=== PATIENT | male | born 1945 | race Caucasian/White ===

== ENCOUNTER 2018-11-02 10:58 | Emergency (ER) | payer MEDICARE, OTHER, SELFPAY ==
[2018-11-02 10:58] VITALS: BP 134/67; PULSE 67; RESP 17; TEMP 36.2; O2SAT 95; BMI 23.1
--- NOTE | 2018-11-02 12:22 | ED.VISSUMM ---
- ER Visit Summary Date of Service: 11/02/18 Chief Complaint: Right hand dog bite History of Present Illness: The patient is a 73 M bit by dog about a week ago. He was at someone's house and dogs got in a fight he tried to help a woman break it up and he was bitten by 1 of the dogs. Initially was doing well not start to have swelling and is concerned it might be an infection. He denies any fever, chills or pus. There is no red streaks. He is right-hand dominant. Physical Examination: No acute distress. Vital signs are stable and afebrile. HEENT exam unremarkable. Lungs clear to auscultation. Regular rhythm no murmur. Abdomen soft nontender. Remedies moving all 4. Neurovascular intact. The right hand there are several dog bite puncture wounds over the dorsum of the thumb and hand also on the wrist and forearm. There is no pus. There is no cellulitis. Is not warm to touch. There is mild swelling to his right hand. There is no lymphangitic streaking. There is no axillary lymphadenopathy. He has full flexion-extension all digits of the right hand. He is able to open and close his fist without any difficulty. No signs of septic joints. No acute cellulitis. Neurologically is awake and alert. Test Results: none Emergency Department Course and Treatment: Clinically this does not look infected and it is mildly swollen. Placed on Augmentin twice daily for 10 days. Return if looks worse or follow-up. Ice and elevate. Treatment Plan: Ice and elevate. Augmentin twice daily for 10 days. Follow-up if not improving return if worse. Disposition: Discharge Impression: Right hand swelling status post dog bite This note was generated with FID[employer] dictation software. It may contain incorrect words, spelling, and punctuation that were not noted in review of the chart prior to signing ED Disposition - Plan for ED Patient: Referrals: Nakul Burns MD [Primary Care Provider] -
--- NOTE | 2018-11-02 12:25 | ED.DEP ---
ED Disposition - Plan for ED Patient: Disposition: Home or Assisted Living Instructions: Dog Bite Prescriptions: Amox/Clavulanate Tablet [Augmentin Tablet] 875 mg PO Q12H #20 tab Prescription Printed Referrals: Nakul Burns MD [Primary Care Provider] - 3-5 Days if not improving Additional Instructions: Ice and elevate right hand. Tylenol for pain. Augmentin 1 pill twice a day for the next 10 till gone. Return if the hand looks worse or follow-up with your doctor if not improving.
[2018-11-02] MEDS: Amox/Clavulanate 875 MG Tablet PO (12:34)
--- NOTE | 2018-11-02 12:36 | ED.RN ---
DISCHARGE INSTRUCTIONS GIVEN TO AND REVIEWED WITH PATIENT, PATIENT DENIES QUESTIONS OR CONCERNS AND VOICES UNDERSTANDING OF DISCHARGE INSTRUCTIONS. PT AMBULATES OUT OF ROOM WITHOUT DIFFICULTY.
== END 2018-11-02 12:37 | disposition home or self-care (01) ==
PROVIDERS: Emergency Provider Emergency Medicine; Family Provider Family Medicine; PCP Family Medicine
DX: S61.451A Open bite of right hand, initial encounter (principal); W54.0XXA Bitten by dog, initial encounter; I10 Essential (primary) hypertension; Z87.891 Personal history of nicotine dependence
CPT/HCPCS: 99283

== ENCOUNTER 2018-11-06 14:23 | Emergency (ER) | payer MEDICARE, SELFPAY ==
[2018-11-06 14:26] VITALS: BP 153/79; PULSE 122; RESP 16; TEMP 36.7; O2SAT 97; BMI 21.5
--- NOTE | 2018-11-06 14:49 | CT_ITS ---
STUDY: CT ABDOMEN AND PELVIS WITH CONTRAST REASON FOR EXAM: Male, 73 years old. Bloody diarrhea RADIATION DOSAGE (If Supplied By Facility): CTDIvol = ( 12.94 ) mGy, DLP = ( 570.96 ) mGycm TECHNIQUE: Transaxial images were obtained from the dome of the diaphragm to the symphysis pubis with oral contrast. 100CC ml of Isovue 300 contrast was administered. Sagittal and coronal images were reconstructed. Individualized dose optimization techniques were used for this CT. COMPARISON: None. FINDINGS: The visualized lung bases are clear. The visualized portions of the heart and pericardium are within normal limits. There are no calcified gallstones present. There is a 1 cm indeterminate hypodensity in the right lobe of the liver. The spleen is normal in size. The pancreas is within normal limits. The adrenal glands are within normal limits. There are no renal or ureteral stones. There is no hydronephrosis. There are no focal renal lesions. Normal visualized stomach. There is no bowel obstruction or inflammation. There are colonic diverticula noted without evidence of diverticulitis. The appendix is visualized and appears normal. The aorta is normal in caliber. There are atherosclerotic calcifications noted in the aorta. There is no abdominal or pelvic free air, free fluid, fluid collection or lymphadenopathy. There are no destructive osseous lesions. CT/Abdomen/Pelvis WITH Contrast IMPRESSION: No bowel obstruction or inflammation. Normal appendix. Colonic diverticula without evidence of diverticulitis. 1 cm indeterminate hypodensity in the right lobe of the liver. Electronically Signed: Ben Jenkins, at 17:01 EDT Tel , Service support ,
--- NOTE | 2018-11-06 15:01 | ED.VIS.GEN ---
History of Present Illness Chief Complaint: GI Bleed Informant: Patient Onset: Days Context: Gradual Onset Timing: Continuous Current Severity: Moderate Maximum Severity: Moderate Narrative: The patient presents to the emergency department GI bleeding. Patient underwent endoscopy and colonoscopy by Dr. Bond in August. 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 The patient was seen here 5 days ago. He states that he had a dog bite on his hand. He was started on Augmentin. Since then, his diarrhea has been worsening. He thinks there is been blood in it. He also admits to lightheadedness. The patient is on baby aspirin but denies any other anticoagulant use. He denies any alcohol use currently. He denies any fevers or chills. He has no history of C. difficile. Prior similar symptoms: Yes Recent Illness/Hospitalization: Yes Past Medical History - Allergies and Home Meds Allergies/Adverse Reactions: Allergies venom-honey bee [bee venom (honey bee)] Allergy (Verified 11/02/18 10:58) Pain in joints Primary Care Physician: Nakul Burns MD [Primary Care Provider] - Prior records reviewed: Yes Past Medical History: - Smoking Status: Former smoker Review of Systems General: Reports: Weight loss. Denies: Chills, Fever, Sweats Eyes: Denies: Visual changes - bilaterally, Diplopia ENT: Denies: Rhinorrhea, Sore throat Cardiovascular: Denies: Chest pain, Palpitations Respiratory: Denies: Dyspnea, Cough, Dyspnea on exertion Gastrointestinal: Reports: Diarrhea. Denies: Abdominal pain, Nausea, Vomiting, Melena, Hematochezia Genitourinary: Denies: Dysuria, Hematuria, Frequency Musculoskeletal: Denies: Back pain, Extremity Pain Skin: Denies: Rash, Wounds Neurological: Denies: Headache, Weakness, Numbness Physical Exam Vital Signs/Narrative: Vital Signs Temp Pulse Resp BP Pulse Ox 11/06/18 14:26 98.0 F 122 H 16 153/79 H 97 Inital Vital Signs reviewed: Yes General: Well nourished, Well developed, No Acute Distress Head: Normocephalic, Atraumatic Eyes: Perrl, EOMI ENT: Moist mucous membranes, No rhinorrhea Neck: Supple, Nontender Cardiovascular: Regular rate, Regular rhythm, No murmurs Respiratory: No distress, CTA bilaterally, Chest nontender Abdomen: Soft, Nontender, Nondistended, Normal bowel sounds Back: Nontender, Normal Inspection Extremities: Nontender, No edema Skin: Normal color, No rash Neurological: Alert, Oriented x3, Cranial nerves II-XII grossly intact, Normal Strength, Normal Sensation Psychological: Normal affect, Normal Mood Diagnostic/Tx/Re-eval Clinical Impression(s) from Imaging Studies Abdomen/Pelvis CT 11/06/18 14:49 IMPRESSION: No bowel obstruction or inflammation. Normal appendix. Colonic diverticula without evidence of diverticulitis. 1 cm indeterminate hypodensity in the right lobe of the liver. Electronically Signed: Ben Jenkins, at 17:01 EDT Tel , Service support , Abnormal Lab Results 11/06/18 11/06/18 11/06/18 14:55 14:55 14:55 WBC 10.3 RBC 2.88 L Hgb 9.5 L Hct 28.8 L MCV 100.0 H MCH 33.0 H MCHC 33.0 RDW Std Deviation 47.8 H RDW Coeff of Radha 13.8 Plt Count 582 H MPV 9.1 Immature Gran % (Auto) 1.400 H Neut % (Auto) 67.1 Lymph % (Auto) 19.5 [place] % (Auto) 9.1 Eos % (Auto) 1.9 Baso % (Auto) 1.0 Absolute Neuts (auto) 6.9 Absolute Lymphs (auto) 2.00 Nucleated RBC % 0 Sodium 144 Potassium 4.2 Chloride 114 H Carbon Dioxide 27.0 Anion Gap 3 L BUN 27 H Creatinine 1.46 H Estim Creat Clear Calc 42.21 Est GFR (MDRD) Af Amer 61 Est GFR (MDRD) Non-Af 50 L BUN/Creatinine Ratio 18.5 Glucose 116 H Calcium 10.2 H Total Bilirubin 0.60 AST 9 L ALT 25 Alkaline Phosphatase 138 H Total Protein 7.1 Albumin 2.8 L Globulin 4.3 H Albumin/Globulin Ratio 0.7 L Blood Type AB POSITIVE Antibody Screen NEGATIVE - Medical Decision Making Rectal exam was performed. There was no gross blood. The patient states that he is been having some diarrhea for months, but thought that he had was blood in it. His labs are unremarkable. His creatinine is only mildly elevated. His hemoglobin is stable. I was able to review his labs from [facility]. CT does not show any evidence of colitis. The patient was not able to give a stool sample here. My suspicion for C. difficile is low. I do feel this is likely exacerbated by his oral antibiotics. He is Neri completed 5 days of treatment. I am going to have a stop his antibiotics. The patient does have outpatient GI follow-up. He will be discharged home. Impression 1. Diarrhea ED Disposition - Plan for ED Patient: Disposition: Home or Assisted Living Instructions: DIARRHEA, Unk Cause (Adult) Report Pendg, Diverticulosis Referrals: Nakul Burns MD [Primary Care Provider] - Additional Instructions: Stop the Augmentin. Make sure to keep your GI appointment. Thank you
[2018-11-06] MEDS: 0.9% Normal Saline 1,000 ML 1000 ML IV (15:04)
[2018-11-06] MEDS: Ondansetron 4 MG/2 ML Vial IV (15:05)
[2018-11-06 15:10] LABS: Absolute Neutrophil Count 6.9 X10^3/uL (2.0-7.7); Eosinophils% 1.9 % (0-5); Hematocrit 28.8 % (40-54); Hemoglobin 9.5 g/dL (13.0-16.5); Lymphocyte % 19.5 % (19-41); Mean Platelet Vol. 9.1 fl (6.2-12.0); Monocyte# 0.93 X10^3/uL; Monocyte% 9.1 % (0-10); NRBC Flagged by Analyzer 0 % (0-5); Neutrophil % 67.1 % (47-70); Platelet Count 582 K/mm3 (150-450); RBC Distribution Width CV 13.8 % (11.6-14.6); RBC Distribution Width SD 47.8 fl (35.1-43.9); Red Blood Count 2.88 M/mm3 (4.6-6.2); White Blood Count 10.3 K/mm3 (4.4-11.0)
[2018-11-06 15:28] LABS: ALB/GLOB Ratio 0.7 RATIO (0.9-2.4); AST(SGOT) 9 U/L (15-37); Alanine Aminotransfer ALT/SGPT 25 U/L (16-61); Albumin, Serum 2.8 g/dL (3.2-5.0); Alkaline Phosphatase 138 U/L (45-117); Anion Gap 3 (5-15); BUN 27 mg/dL (7-18); BUN/Creat Ratio 18.5 RATIO (10-20); Calcium,Total 10.2 mg/dL (8.5-10.1); Chloride 114 mmol/L (98-107); Creatinine, Serum 1.46 mg/dL (0.70-1.30); EST Glomerular Filtration Rate 50 mL/min (>60); Est Glom Filt Rate - Afr Amer 61 mL/min (>60); Estimated Creatinine Clearance 42.21 ml/min; Globulin 4.3 g/dL (2.2-4.2); Glucose 116 mg/dL (74-106); Potassium 4.2 mmol/L (3.5-5.1); Protein, Total 7.1 g/dL (6.4-8.2); Sodium Level 144 mmol/L (136-145)
[2018-11-06 17:09] VITALS: BP 138/74; PULSE 84; RESP 16; O2SAT 99
== END 2018-11-06 17:47 | disposition home or self-care (01) ==
LOC: ED 15:20
PROVIDERS: Emergency Provider Emergency Medicine; Family Provider Family Medicine; PCP Family Medicine
DX: R19.7 Diarrhea, unspecified (principal); K57.30 Diverticulosis of large intestine without perforation or abscess without bleeding; Z87.891 Personal history of nicotine dependence; Z79.82 Long term (current) use of aspirin; W54.0XXA Bitten by dog, initial encounter
CPT/HCPCS: 74177; 80053; 85025; 86850; 86900; 86901; 96361; 96374; 99283; J7030; Q9967; A4216; J2405

== ENCOUNTER 2020-08-25 15:48 | Emergency (ER) | payer MEDICARE, SELFPAY ==
[2020-08-25 15:49] VITALS: BP 140/66; PULSE 70; RESP 16; TEMP 35.9; O2SAT 97; BMI 24.7
--- NOTE | 2020-08-25 16:39 | EDS_ITS ---
HPI History of Present Illness Chief Complaint: Wound Detail of Chief Complaint: Fall with laceration to right knee Informant: patient Narrative Narrative: Patient presents to the emergency department with a fall that occurred prior to arrival in the emergency department. Patient states that he was on a patio when he tripped and fell onto his right knee. He did not hit his head. He sustained a laceration over the right knee along the area where his surgical scar was from total knee replacement 7 weeks ago at the [facility]. Patient unsure of his last tetanus shot. Patient was ambulatory afterwards. PFSH PFS Home Medications Therems-M 1 tab PO DAILY 06/22/14 [History Last Taken 11/06/18] lisinopril 20 mg PO DAILY 06/22/14 [History Last Taken 11/06/18] omeprazole 40 mg PO DAILY 06/22/14 [History Last Taken 11/06/18] potassium gluconate 500 mg PO DAILY 06/22/14 [History Last Taken 11/05/18] sildenafil [Viagra] 100 mg PO DAILY PRN 06/22/14 [History Last Taken Unknown] pzkobn-jylayhdh-tcavwls 1 cap PO TIDCM 11/06/18 [History Last Taken 11/06/18] apixaban [Eliquis] 5 mg PO BID 08/25/20 [History Last Taken Unknown] cephalexin 500 mg PO Q6 #40 capsule 08/25/20 [Rx Last Taken Unknown] metoprolol tartrate 50 mg PO DAILY 08/25/20 [History Last Taken Unknown] Allergy/AdvReac Type Severity Reaction Status Date / Time venom-honey bee Allergy Pain in Verified 08/25/20 15:51 [bee venom (honey bee)] joints Social History Smoking Status: Former smoker ROS ROS ED Constitutional Constitutional ED: Reports systems reviewed and no addt'l complaints, except as documented; Denies body ache(s), change in weight or chills Eyes Eyes: Denies acute decrease in peripheral vision, change in vision, double vision or loss of vision ENT ENT ED: Reports none; Denies ear pain, lip swelling, loss taste/smell, neck pain, otalgia or sore throat Cardiovascular Cardiovascular: Reports none; Denies abdominal pain, chest pain with activity, leg edema, lightheadedness, palpitations, rapid heart rate or syncope Respiratory/Chest Respiratory/Chest: Reports none; Denies change in mental status, dry cough, dyspnea, hemoptysis, shortness of breath at rest or shortness of breath with exertion Gastrointestinal Gastrointestinal: Reports none; Denies abdominal pain, change in stool character, diarrhea, hematemesis, hematochezia, melena, rectal bleeding or vomiting Genitourinary Genitourinary ED: Reports none; Denies abdominal discomfort, anuria, dysuria, genital pain or polyuria Musculoskeletal Musculoskeletal: Reports none and other Details: Knee pain after fall with laceration to right knee ; Denies arthralgias, back pain, difficulty walking, extremity pain, muscle weakness or myalgias Integumentary Reports none; Denies abscess or rash Neurologic Neurologic: Reports none; Denies abnormal gait, confusion, focal weakness, frequent falls, headache(s), loss of vision, numbness, paresthesias, radicular pain, vertigo or weakness Psychiatric Psychiatric: Reports systems reviewed and no addt'l complaints, except as documented and none; Denies behavioral changes, confusion, difficulty concentrating, hallucinations, suicidal ideation, tactile hallucinations or visual hallucinations Endocrine Endocrinology: Denies none, cold intolerance, excessive sweating, fatigue or heat intolerance Hematologic/Lymphatic Hematologic/Lymphatic: Reports none; Denies anemia, easy bleeding or easy brui sing Allergic/Immunologic Allergic/Immunologic ED: Denies as per HPI, none, lip swelling, mouth swelling, throat swelling, tongue swelling or hives EXAM Physical Exam Const Vital Signs: 08/25/20 15:49 Temperature 96.7 F L Temperature Source Temporal Pulse Rate 70 Respiratory Rate 16 Blood Pressure 140/66 H Blood Pressure Mean 90 Pulse Ox 97 Oxygen Delivery Method Room Air Positive well nourished and well developed General Appearance ED: well developed and NAD HEENT Reports TM's clear and moist mucous membranes normocephalic and atraumatic; Negative for trauma or tenderness Tympanic Membrane ED: Yes TM's clear Eyes PERRL and EOMs intact bilaterally General Eye ED: Negative for pale conjunctiva or scleral icterus Neck no lymphadenopathy, supple and no JVD General: Negative for tenderness Chest Wall inspection of chest normal and palpation of chest normal Chest: Negative for tenderness Resp normal respiratory effort and clear to auscultation bilaterally Effort and Inspection: Negative for respiratory distress or pain with movement Auscultation: Negative for rhonchi, wheezes or diminished lung sounds Cardio regular rate, regular rhythm, S1 normal heart sound, S2 normal heart sound and no murmurs Peripheral Pulses: pulses 2+ throughout GI normal to inspection, nondistended, normoactive bowel sounds, soft to palpation, non-tender, non-distended and no masses Back/Spine no CVA tenderness and no thoracic nor lumbar tenderness Extremity Extremity Narrative: Patient does have contusion to the lateral aspect of the right knee with some bruising noted. Patient has a 10 cm laceration over the anterior aspect of the knee along the old surgical scar. Neurovascularly intact distally. No significant bleeding at this time. General Extremety ED: Negative for edema General Extremity: Negative for edema Neuro oriented x3, CN's II-XII intact bilaterally, no sensory deficits noted and gait normal Sensorium / Orientation: awake, alert, oriented to person, oriented to place and oriented to time Motor Exam: strength 5/5 throughout and strength abnormal Psych mental status grossly normal Skin no rashes or lesions noted and no wounds MDM MDM MDM Narrative Medical decision making narrative: Patient had x-rays of the right knee which showed no fractures only the laceration. Patient to follow-up with his orthopedic surgeon as he has an appointment next week. He will be started on Keflex. Suture repair was undertaken see repair note. Radiography Diagnostic Testing: Radiology Impression Knee X-Ray 08/25/20 16:45 IMPRESSION: 1. The surgical incision tract is open and measures 1.36 x 0.79 cm within subcutaneous tissues anterior to the midline and medial aspect of the patella. Electronically Signed: Elier Terrell MD at 17:48 EDT , Service support , 4 view x-rays of right knee obtained showed no fractures. Radiology in agreeme nt and did note the laceration over the anterior aspect of the knee. Procedures Lacerations 10 cm knee laceration: Length: 3.94 in Depth: Fascia Shape: Linear Prep: Sterile Conditions and Shure-Clens Laceration repair: Skin sutures Irrigated (ml): 200 Number of Sutures/[place]: 12 Suture Information: Ethilon Comment: 3 Vicryl subcutaneous sutures placed in 12 skin sutures placed Discharge Plan Triage Chief Complaint: Wound ED Provider: Cezar Cosby Dx/Rx/DC Orders Clinical Impression: Contusion of knee Instructions: ED Contusion, Lower Extremity, ED Laceration: All Closures Prescriptions: New cephalexin [cephalexin] 500 MG capsule 500 mg PO Q6 Qty: 40 RF: 0 No Action sildenafil [Viagra] 100 MG tablet 100 mg PO DAILY PRN (Reason: Edema) RF: 0 omeprazole 20 MG capsule 40 mg PO DAILY RF: 0 lisinopril 40 MG tablet 20 mg PO DAILY RF: 0 Therems-M 1 TABLET tablet 1 tab PO DAILY RF: 0 potassium gluconate 500 MG tablet 500 mg PO DAILY RF: 0 bkxdfy-emfamouv-cfduldi 1 CAPSULE capsule 1 cap PO TIDCM RF: 0 metoprolol tartrate 50 mg Tablet 50 mg PO DAILY RF: 0 Eliquis 5 mg Tablet 5 mg PO BID RF: 0 Primary Care Provider: Nakul Burns Referrals: Nakul Burns MD [Primary Care Provider] - Activity Restrictions/Additional Instructions: See your surgeon at the earliest possible time. Suture removal will be in 10 to 14 days.
--- NOTE | 2020-08-25 16:45 | RAD_ITS ---
STUDY: X-RAY - RIGHT KNEE REASON FOR EXAM: Male, 75 years old. FELL ON RIGHT KNEE THAT HE HAD A RECENT KNEE REPLACEMENT SURGERY ON. INCISION SITE IS NOW OPEN POST FALL. TECHNIQUE: 3 view(s) of the knee. COMPARISON: None. FINDINGS: The surgical incision tract is open and measures 1.36 x 0.79 cm within subcutaneous tissues anterior to the midline and medial aspect of the patella. Subcutaneous gas is present in the incision site. No visualized acute fracture is seen. Unremarkable knee prosthetic components. Normal proximal tibiofibular articulation. Mild soft tissue swelling is present around the knee joint and distal thigh. There are atherosclerotic calcifications. RAD/Knee 4 or More Views IMPRESSION: 1. The surgical incision tract is open and measures 1.36 x 0.79 cm within subcutaneous tissues anterior to the midline and medial aspect of the patella. Electronically Signed: Elier Terrell MD at 17:48 EDT , Service support ,
[2020-08-25] MEDS: Diphth,Pertuss(Acell),Tet Vac 0.5 ML Vial IM (17:12)
[2020-08-25] MEDS: Lidocaine 1% (20 ml mdv) 20 ML Vial INFILT (17:12)
[2020-08-25] MEDS: Cephalexin 250 MG Capsule 500 MG PO (18:53)
[2020-08-25 18:54] VITALS: BP 156/73; PULSE 67; RESP 16
== END 2020-08-25 18:56 | disposition home or self-care (01) ==
LOC: ED 16:46
PROVIDERS: Emergency Provider Emergency Medicine; PCP Family Medicine
DX: S81.011A Laceration without foreign body, right knee, initial encounter (principal); W01.0XXA Fall on same level from slipping, tripping and stumbling without subsequent striking against object, initial encounter; Z79.01 Long term (current) use of anticoagulants; Z87.891 Personal history of nicotine dependence; Z79.899 Other long term (current) drug therapy; Z23 Encounter for immunization
CPT/HCPCS: 12004; 73564; 90715; 99285

== ENCOUNTER 2022-09-02 16:27 | Emergency (ER) | payer OTHER, MEDICARE, SELFPAY ==
[2022-09-02 16:29] VITALS: BP 157/72; PULSE 81; RESP 16; TEMP 36.4; O2SAT 97; BMI 24.7
--- NOTE | 2022-09-02 16:52 | EDS_ITS ---
HPI History of Present Illness Chief Complaint: Abn Labs Informant: patient Narrative Narrative: Patient was called by outpatient lab this morning and told that his magnesium was low and he should get to the emergency department. This blood work was done as part of blood work prior to an upcoming routine physicians visit on the sixth of this month. He normally has blood work done ahead of time. At first he states he has no problems he is never had this probl em. But then I find out he is on magnesium 4 times a day. He is on it because he has had low magnesium before. They do not know why its lower he does not know why. He is also on like 20 other pills. He is not sure what these are for. But he is totally asymptomatic. He has no weakness no trouble breathing. No twitching no numbness. No new medicines other than statin was added a few months ago. But he has no muscle pains from that. No change in urine output. He does not know what the magnesium level was that was abnormal today. He does not know where it normally runs. [facility] Medical History HTN (hypertension) Home Medications lisinopril 40 mg tablet 20 mg PO DAILY 06/22/14 [History Last Taken 11/06/18] multivitamin,xc-auwy-sdymxmhs 27 mg-0.4 mg tablet (Therems-M) 1 tab PO DAILY 06/22/14 [History Last Taken 11/06/18] omeprazole 20 mg capsule,delayed release 40 mg PO DAILY 06/22/14 [History Last Taken 11/06/18] potassium gluconate 500 mg (83 mg) tablet 500 mg PO DAILY 06/22/14 [History Last Taken 11/05/18] sildenafil 100 mg tablet (Viagra) 100 mg PO DAILY PRN Edema 06/22/14 [History Last Taken Unknown] tqwvff-yizqimnc-trrzxls 12,000-38,000-60,000 unit capsule,delayed rel 1 cap PO T IDCM 11/06/18 [History Last Taken 11/06/18] apixaban 5 mg tablet (Eliquis) 5 mg PO BID 08/25/20 [History Last Taken Unknown] cephalexin 500 mg capsule 500 mg PO Q6 #40 CAPSULES 08/25/20 [Rx Last Taken Unknown] metoprolol tartrate 50 mg tablet 50 mg PO DAILY 08/25/20 [History Last Taken Unknown] Allergy/AdvReac Type Severity Reaction Status Date / Time venom-honey bee Allergy Pain in Verified 09/02/22 16:29 [bee venom (honey bee)] joints Surgical History H/O hernia repair Total knee replacement status Social History Smoking Status: Former smoker ROS ROS ED ROS Narrative A complete review of systems was performed and is negative except as documented in the history of present illness. Some specific details below. Constitutional: No recent fevers or chills. No rigors. Patient has not generally felt ill. He has no complaints at all EYE: No discharge, visual complaints, or pain. ENT: No difficulty swallowing. CV: No chest pain, pressure or aching. No palpitations or irregular beats. Patient has not been presyncopal or syncopal. Respiratory: No trouble breathing. No cough. No wheezing. No sputum production. No pain with breathing. GI: No abdominal pain. No nausea vomiting diarrhea. No blood in stool. : No frequency dysuria or hematuria. No change in output or color. Musculoskeletal: No recent trauma. No pains. No swelling. Skin: No rash. Nondiaphoretic. Neuro: No weakness or numbness. No difficulty with speaking. No difficulty understanding speech. No visual loss. Endocrine: No polyuria or polydipsia. EXAM Physical Exam Narrative Exam Narrative: CONSTITUTIONAL: Patient is nontoxic in appearance. The patient looks comfortable. Work of breathing looks normal. He walked back in the room without any difficulties. HEENT: No notable trauma. Mucous membranes are still moist. No sinus tenderness. EYES: No conjunctival injection. No proptosis. No pain with range of motion. No pallor. NECK: No meningismus. No JVD. CARDIOVASCULAR: Regular rate. Regular rhythm. No notable murmur. No JVD. RESPIRATORY: No respiratory distress. Breathing is unlabored. No wheezes. No rhonchi. No rales. No pain with a deep breath. GASTROINTESTINAL: Not distended. Bowel sounds are normal. No tenderness. No guarding. No rebound. No palpable mass. No bruit. GENITOURINARY: No tenderness over the bladder. No CVA tenderness. MUSCULOSKELETAL: Atraumatic. No peripheral edema. No cord. No tenderness along the deep venous system. No asymmetry. NEUROLOGICAL: Patient is alert and oriented. No focal deficit noted. SKIN: No noted rashes. No diaphoresis. No vesicles noted. No notable pallor. PSYCHIATRIC: Patient is calm. Mood is appropriate. Const Vital Signs: 09/02/22 16:29 09/02/22 16:43 Temperature 97.6 F L Temperature Source Temporal Pulse Rate 81 Respiratory Rate 16 Respiratory Effort Normal Respiratory Pattern Normal Blood Pressure 157/72 H Blood Pressure Mean 100 Pulse Ox 97 Oxygen Delivery Method Room Air MDM MDM MDM Narrative Medical decision making narrative: Patient CBC shows some mild anemia at 10.0. Platelets are normal white count is normal. Patient's electrolytes showed mild elevation in creatinine at 1.34. This is actually better than about 4 years ago. Patient's phosphorus is normal. Patient's magnesium is quite low at 0.7. However, he is asymptomatic. He has a history of this. We will have him increase his magnesium tablets to 4 times a day. I did give him some oral magnesium and IV here. His magnesium was rechecked and went up to normal at 2.4. He has an appointment already with his doctor in 3 days. They can recheck the magnesium there. Since he is asymptomatic and his magnesium is now good I think we can get him home as he already has close follow-up. Lab Data Attestation: I reviewed the patient's lab results. Labs: Laboratory Results - last 24 hr 09/02/22 09/02/22 16:49 23:13 WBC 8.3 RBC 3.13 L Hgb 10.0 L Hct 30.5 L MCV 97.4 H MCH 31.9 MCHC 32.8 RDW Std Deviation 43.8 RDW Coeff of Radha 12.2 Plt Count 365 MPV 9.5 Immature Gran % (Auto) 0.200 Neut % (Auto) 48.8 Lymph % (Auto) 33.6 [place] % (Auto) 12.1 H Eos % (Auto) 4.1 Baso % (Auto) 1.2 H Absolute Neuts (auto) 4.0 Absolute Lymphs (auto) 2.78 Nucleated RBC % 0 Sodium 138 Potassium 3.9 Chloride 107 Carbon Dioxide 26.0 Anion Gap 5 BUN 30 H Creatinine 1.34 H Estim Creat Clear Calc 44.66 Est GFR (MDRD) Af Amer 66 Est GFR (MDRD) Non-Af 55 L BUN/Creatinine Ratio 22.4 H Glucose 96 Calcium 7.7 L Phosphorus 3.8 Magnesium 0.7 L* 2.4 Discharge Plan Triage Chief Complaint: Abn Labs ED Provider: Jose G Lowery Dx/Rx/DC Orders Clinical Impression: Mild anemia, Hypomagnesemia Instructions: Hypomagnesemia Dc Prescriptions: No Action sildenafil [Viagra] 100 MG tablet 100 mg PO DAILY PRN (Reason: Edema) Patient Comments: supplement omeprazole 20 MG capsule 40 mg PO DAILY Patient Comments: acid reflex lisinopril 40 MG tablet 20 mg PO DAILY Patient Comments: high blood pressure Therems-M 1 TABLET tablet 1 tab PO DAILY Patient Comments: supplement potassium gluconate 500 MG tablet 500 mg PO DAILY Patient Comments: supplement qoefmm-czzdyqcg-lohvtzh 1 CAPSULE capsule 1 cap PO TIDCM Patient Comments: TAKE 1 CAPSULE BY MOUTH THREE TIMES DAILY with meals metoprolol tartrate 50 mg Tablet 50 mg PO DAILY Eliquis 5 mg Tablet 5 mg PO BID cephalexin [cephalexin] 500 MG capsule 500 mg PO Q6 Qty: 40 0RF Primary Care Provider: Nakul Burns Referrals: Nakul Burns MD [Primary Care Provider] - Keep [place] appointment Activity Restrictions/Additional Instructions: Follow-up with your primary physician in 3 days as scheduled. They may recheck your labs to make sure your magnesium is doing well. Increase your magnesium by 2 tablets a day until seen by your family doctor. Disposition Disposition: Home, Self Care
[2022-09-02 16:59] LABS: Absolute Lymphocyte Count 2.78 X10^3/uL (0.83-4.51); Basophil% 1.2 % (0-1); Eosinophil# 0.34 X10^3/uL; Eosinophils% 4.1 % (0-5); Hematocrit 30.5 % (40-54); Lymphocyte # 2.78 X10^3/ul (0.83-4.51); Lymphocyte % 33.6 % (19-41); Mean Corp Hgb Conc 32.8 g/dL (32-36); Mean Corpuscular Hgb 31.9 pg (27.0-32.0); Mean Corpuscular Volume 97.4 fL (80-94); Mean Platelet Vol. 9.5 fl (6.2-12.0); Monocyte% 12.1 % (0-10); NRBC Flagged by Analyzer 0 % (0-5); Neutrophil # 4.04 X10^3/uL (2.7-7.7); Neutrophil % 48.8 % (47-70); Platelet Count 365 K/mm3 (150-450); RBC Distribution Width CV 12.2 % (11.6-14.6); RBC Distribution Width SD 43.8 fl (35.1-43.9); Red Blood Count 3.13 M/mm3 (4.6-6.2); White Blood Count 8.3 K/mm3 (4.4-11.0)
[2022-09-02 17:42] LABS: Anion Gap 5 (5-15); BUN 30 mg/dL (7-18); BUN/Creat Ratio 22.4 RATIO (10-20); Calcium,Total 7.7 mg/dL (8.5-10.1); Chloride 107 mmol/L (98-107); Creatinine, Serum 1.34 mg/dL (0.70-1.30); EST Glomerular Filtration Rate 55 mL/min (>60); Est Glom Filt Rate - Afr Amer 66 mL/min (>60); Estimated Creatinine Clearance 44.66 ml/min; Glucose 96 mg/dL (74-106); Magnesium 0.7 mg/dL (1.6-2.6); Phosphorus 3.8 mg/dL (2.5-4.9); Potassium 3.9 mmol/L (3.5-5.1); Sodium Level 138 mmol/L (136-145)
[2022-09-02] MEDS: Magnesium Sulfate 4gm/100mL 4 GM/100 ML IV.SOLN. IV (18:48)
[2022-09-02] MEDS: Magnesium Chloride 64 MG Delay Rel.Tablet 128 MG PO (19:48)
[2022-09-02 23:29] LABS: Magnesium 2.4 mg/dL (1.6-2.6)
[2022-09-02 23:47] VITALS: TEMP -8.8; TEMP 16
== END 2022-09-02 23:48 | disposition home or self-care (01) ==
PROVIDERS: Emergency Provider Emergency Medicine; PCP Family Medicine; Visit Provider Emergency Medicine
DX: E83.42 Hypomagnesemia (principal); D64.9 Anemia, unspecified; I10 Essential (primary) hypertension; Z87.891 Personal history of nicotine dependence; Z79.899 Other long term (current) drug therapy
CPT/HCPCS: 80048; 83735; 84100; 85025; 96360; 96361; 99284; J7050

== ENCOUNTER 2022-10-08 13:33 | Observation (INO) | payer MEDICARE, SELFPAY ==
[2022-10-08] VITALS (16 sets, daily range): BP systolic 82–130; BP diastolic 48–65; PULSE 29–69; RESP 15–25; TEMP 35.8–36.7; O2SAT 89–109; BMI 25.2; BMI 24.6
--- NOTE | 2022-10-08 14:15 | EKG12_ITS ---
Test Reason : PALPITATIONS Blood Pressure : / mmHG Vent. Rate : 051 BPM Atrial Rate : 051 BPM P-R Int : 138 ms QRS Dur : 092 ms QT Int : 424 ms P-R-T Axes : 000 -14 010 degrees QTc Int : 390 ms Sinus bradycardia with sinus arrhythmia Otherwise normal ECG Confirmed by EASTON HOUSE, JANELLE ([id number]), manager editorial JA VILLEGAS ([id number]) on 10/14/2022 9:02:41 AM Referred By: Confirmed By:LARRY MCCORMACK MD
--- NOTE | 2022-10-08 14:17 | EDS_ITS ---
HPI History of Present Illness Chief Complaint: Shortness of Breath Informant: patient and family Narrative Narrative: Presents here ED brother present, reported sudden short of breath lightheaded 2 hours prior to arrival. No cough. No recent vomiting or diarrhea. Denies bloody stools. He is on Eliquis for history of A-fib. Also on metoprolol. No he was bradycardic on arrival was called to room for evaluation. He denies taking any extra doses of metoprolol. He is [facility] cardiology. He does not have a pacemaker. Also reports was admitted a week ago for significant low magnesium he received IV magnesium infusion states currently taking 6 tabs a day of magnesium. [facility] Medical History HTN (hypertension) Home Medications lisinopril 40 mg tablet 40 mg PO DAILY 06/22/14 [History Last Taken 11/06/18] multivitamin,yh-piwx-smicypcb 27 mg-0.4 mg tablet (Therems-M) 1 tab PO DAILY 06/22/14 [History Last Taken 11/06/18] omeprazole 20 mg capsule,delayed release 40 mg PO DAILY 06/22/14 [History Last Taken 11/06/18] potassium gluconate 500 mg (83 mg) tablet 500 mg PO DAILY 06/22/14 [History Last Taken 11/05/18] sildenafil 100 mg tablet (Viagra) 100 mg PO DAILY PRN Edema 06/22/14 [History Last Taken Unknown] swwxwa-hufmooik-pscsfya 12,000-38,000-60,000 unit capsule,delayed rel 1 cap PO TIDCM 11/06/18 [History Last Taken 11/06/18] apixaban 5 mg tablet (Eliquis) 5 mg PO BID 08/25/20 [History Last Taken Unknown] metoprolol tartrate 50 mg tablet 50 mg PO DAILY 08/25/20 [History Last Taken Unknown] amlodipine 5 mg tablet 5 mg PO DAILY 10/08/22 [History Last Taken Unknown] magnesium oxide 420 mg tablet 840 mg PO TID 10/08/22 [History Last Taken Unknown] pregabalin 50 mg capsule (Lyrica) 50 mg PO BID 10/08/22 [History Last Taken Unknown] rosuvastatin 20 mg tablet (Crestor) 20 mg PO DAILY 10/08/22 [History Last Taken Unknown] tizanidine 4 mg tablet 4 mg PO TID PRN muscle spasticity 10/08/22 [History Last Taken Unknown] Allergy/AdvReac Type Severity Reaction Status Date / Time venom-honey bee Allergy Pain in Verified 10/08/22 13:35 [bee venom (honey bee)] joints Surgical History H/O hernia repair Total knee replacement status Social History Smoking Status: Former smoker ROS ROS ED Constitutional Constitutional ED: Denies chills, fever(s) or sweats Eyes Eyes: Denies change in vision ENT ENT ED: Denies dysphagia or sore throat Cardiovascular Cardiovascular: Reports other Details: Light headed ; Denies chest pain, leg edema, palpitations or racing heartbeat Respiratory/Chest Respiratory/Chest: Reports dyspnea; Denies cough or dyspnea on exertion Gastrointestinal Gastrointestinal: Denies abdominal pain, diarrhea, nausea or vomiting Genitourinary Genitourinary ED: Denies dysuria, hematuria or urinary frequency Musculoskeletal Musculoskeletal: Denies back pain, extremity pain or neck pain Integumentary Denies rash or wounds Neurologic Neurologic: Denies headache(s), paresthesias or weakness EXAM Physical Exam Const Vital Signs: 10/08/22 13:35 10/08/22 14:01 10/08/22 14:07 Temperature 96.5 F L Temperature Source Temporal Pulse Rate 57 L 42 L 39 L Respiratory Rate 18 21 H 18 Respiratory Pattern Blood Pressure 82/65 L 109/49 L Blood Pressure Mean 70 69 Pulse Ox 98 109 100 Oxygen Delivery Method Room Air Room Air 10/08/22 14:16 10/08/22 14:28 10/08/22 14:50 Temperature Temperature Source Pulse Rate 29 L 37 L 46 L Respiratory Rate 21 H 17 Respiratory Pattern Blood Pressure 99/50 L 99/48 L 115/50 L Blood Pressure Mean 66 65 71 Pulse Ox 100 99 99 Oxygen Delivery Method Room Air Room Air 10/08/22 14:34 10/08/22 14:37 10/08/22 14:40 Temperature Temperature Source Pulse Rate 46 L 39 L 36 L Respiratory Rate 25 H 22 H 20 H Respiratory Pattern Blood Pressure 97/53 L 115/50 L Blood Pressure Mean 67 66 Pulse Ox 100 100 100 Oxygen Delivery Method 10/08/22 14:50 10/08/22 15:00 10/08/22 15:11 Temperature Temperature Source Pulse Rate 35 L 45 L 66 Respiratory Rate 18 20 H 17 Respiratory Pattern Blood Pressure 103/52 L Blood Pressure Mean 67 Pulse Ox 96 Oxygen Delivery Method Room Air 10/08/22 15:28 Temperature Temperature Source Pulse Rate 64 Respiratory Rate 18 Respiratory Pattern Normal Blood Pressure Blood Pressure Mean Pulse Ox Oxygen Delivery Method Positive well nourished and well developed General Appearance ED: well developed and NAD HEENT Reports moist mucous membranes normocephalic and atraumatic Eyes PERRL and EOMs intact bilaterally General Eye ED: Yes pale conjunctiva Neck no lymphadenopathy and supple General: Negative for tenderness Chest Wall Chest: Negative for tenderness Resp normal respiratory effort and normal air movement Effort and Inspection: symmetric chest movement; Negative for respiratory distress Cardio regular rhythm and no murmurs Rate: bradycardia Peripheral Pulses: pulses 2+ throughout GI normal to inspection, nondistended, normoactive bowel sounds and non-tender Palpation: Negative for guarding or rebound tenderness present Back/Spine no CVA tenderness and no thoracic nor lumbar tenderness Extremity normal to inspection General Extremety ED: Negative for edema or tenderness General Extremity: Negative for edema Neuro oriented x3 and no sensory deficits noted Sensorium / Orientation: awake and alert Skin no rashes or lesions noted and no wounds MDM MDM MDM Narrative Medical decision making narrative: Interventions / MDM: Differential diagnosis: Diagnosis considered but do not suspect: N/A My EKG interpretation: Sinus rate of 51, no ST or T wave changes, no clear signs of complete heart block. Imaging independently reviewed and interpreted by myself: N/A External documents reviewed: ED visit from 09/02/2022. Magnesium level 0.7 status post ordered IV magnesium recheck was 2.4. At that time was taking 4 tabs of magnesium a day and was told to go up additional 2 tabs a day. Test considered but not ordered:N/A ED course: Patient EKG is sinus rate of 51 however on the monitor he will fluctuate from high 20s to the low 40s sinus rhythm. Blood pressure low 100s high 90s. No respiratory distress. Recent reported magnesium repletion with continued home possibility of magnesium toxicity, he is also appears anemic. He is on metoprolol. Laboratory studies ordered for further evaluation. 1530: Magnesium 2.6. Creatinine 1.96 up from 1.34 with potassium 5.8. Hem oglobin 9.9. Heart rate now high 50s low 60s sinus rhythm blood pressure stable. Clinically stable resting. With DVAID and hyperkalemia. I ordered for hyperkalemia treatment. Aerosol treatments were being given. I did speak with hospice Dr. Medina, states to only give oral Kayexalate at this time with mild hyperkalemia. Will DC IV calcium, insulin and glucose. Patient remained stable. Patient admitted to PCU for further management. Re-evaluation: stable Disposition discussed with patient/family/significant other: Patient and daughter Case discussed with consulting clinician: Hospitalist This note was generated with [employer] dictation software. It may contain incorrect words, spelling, and punctuation that were not noted in checking the note before signing. Lab Data Attestation: I reviewed the patient's lab results. Labs: Laboratory Results - last 24 hr 10/08/22 13:55 WBC 11.1 H RBC 3.17 L Hgb 9.9 L Hct 31.9 L MCV 100.6 H MCH 31.2 MCHC 31.0 L RDW Std Deviation 49.6 H RDW Coeff of Radha 13.4 Plt Count 390 MPV 10.2 Immature Gran % (Auto) 0.500 Neut % (Auto) 69.8 Lymph % (Auto) 18.3 L [place] % (Auto) 7.1 Eos % (Auto) 3.3 Baso % (Auto) 1.0 Absolute Neuts (auto) 7.7 Absolute Lymphs (auto) 2.02 Nucleated RBC % 0 PT 16.1 H INR 1.3 APTT 42.2 H Sodium 135 L Potassium 5.8 H Chloride 106 Carbon Dioxide 25.0 Anion Gap 4 L BUN 48 H Creatinine 1.96 H Estim Creat Clear Calc 30.54 Est GFR (MDRD) Af Amer 43 L Est GFR (MDRD) Non-Af 35 L BUN/Creatinine Ratio 24.5 H Glucose 111 H Calcium 9.7 Magnesium 2.6 Discharge Plan Dx/Rx/DC Orders Clinical Impression: DAVID (acute kidney injury), Symptomatic bradycardia, Acute hyperkalemia Disposition Disposition: [facility]
[2022-10-08] MEDS: 0.9% Normal Saline 1,000 ML 100 ML IV ×2 (14:21→20:03)
[2022-10-08 14:37] LABS: Absolute Lymphocyte Count 2.02 X10^3/uL (0.83-4.51); Absolute Neutrophil Count 7.7 X10^3/uL (2.0-7.7); Basophil# 0.11 X10^3/uL; Eosinophil# 0.36 X10^3/uL; Eosinophils% 3.3 % (0-5); Hematocrit 31.9 % (40-54); Hemoglobin 9.9 g/dL (13.0-16.5); Lymphocyte # 2.02 X10^3/ul (0.83-4.51); Lymphocyte % 18.3 % (19-41); Mean Corpuscular Hgb 31.2 pg (27.0-32.0); Mean Corpuscular Volume 100.6 fL (80-94); Mean Platelet Vol. 10.2 fl (6.2-12.0); Monocyte# 0.78 X10^3/uL; Monocyte% 7.1 % (0-10); NRBC Flagged by Analyzer 0 % (0-5); Neutrophil # 7.74 X10^3/uL (2.7-7.7); Neutrophil % 69.8 % (47-70); Platelet Count 390 K/mm3 (150-450); RBC Distribution Width CV 13.4 % (11.6-14.6); RBC Distribution Width SD 49.6 fl (35.1-43.9); Red Blood Count 3.17 M/mm3 (4.6-6.2); White Blood Count 11.1 K/mm3 (4.4-11.0)
[2022-10-08 15:04] LABS: Anion Gap 4 (5-15); BUN 48 mg/dL (7-18); BUN/Creat Ratio 24.5 RATIO (10-20); Calcium,Total 9.7 mg/dL (8.5-10.1); Chloride 106 mmol/L (98-107); Creatinine, Serum 1.96 mg/dL (0.70-1.30); EST Glomerular Filtration Rate 35 mL/min (>60); Est Glom Filt Rate - Afr Amer 43 mL/min (>60); Estimated Creatinine Clearance 30.54 ml/min; Glucose 111 mg/dL (74-106); Magnesium 2.6 mg/dL (1.6-2.6); Potassium 5.8 mmol/L (3.5-5.1); Sodium Level 135 mmol/L (136-145)
[2022-10-08 15:09] LABS: International Normalized Ratio 1.3; Prothrombin Time (Protime)PT. 16.1 SECONDS (11.7-14.9)
[2022-10-08 15:10] LABS: Partial Thromboplast Time 42.2 Seconds (24.1-36.2)
--- NOTE | 2022-10-08 15:10 | RAD_ITS ---
EXAM: XR CHEST, 1 VIEW CLINICAL INDICATION: sob TECHNIQUE: Frontal view of the chest. COMPARISON: No relevant prior studies available. FINDINGS: LUNGS AND PLEURAL SPACES: Bibasilar linear densities which may represent atelectasis or scarring. No pneumothorax. No effusion. HEART: Heart is top normal size. MEDIASTINUM: No mediastinal or hilar mass. BONES/JOINTS: No acute abnormality. RAD/Chest 1 View (Portable) IMPRESSION: Bibasilar linear scarring/atelectasis. Electronically Signed: Grey Bush MD at 16:37 EDT ,
[2022-10-08] MEDS: Albuterol 2.5 MG/3 ML VIAL.NEB. 10 MG INHALATION (15:25)
--- NOTE | 2022-10-08 15:34 | NURSING ---
DR BEL ALVAREZ
--- NOTE | 2022-10-08 15:47 | NURSING ---
126 OBS TERELETSKY SYMPTOMATIC BRADYCARDIA, DAVID, HYPERKALEMIA
[2022-10-08] MEDS: Sodium Polystyrene Sulfonate 15 GM/60 ML UDC PO (15:59)
--- NOTE | 2022-10-08 16:30 | PCM.HP.STD ---
HPI - General General Date of Admission: 10/08/22 Date of Service: 10/08/22 Chief Complaint: Shortness of breath, generalized fatigue HPI Narrative JENS BARRIENTOS, is a 77 M who presents to the emergency room at [facility] with complaints of generalized fatigue, lightheadedness, and weakness as well as shortness of breath which started several hours ago.. Patient denies any chest pain, he denies any fevers or chills. Evaluation in the emergency room revealed the patient to be bradycardic, telemetry strips showed rates between 20 and 30 bpm, patient was alert during these episodes, patient had an EKG performed which showed a sinus bradycardia with a rate of approximately 55. No ischemic changes were noted. Labs obtained included a CBC which showed a white blood cell count of 11.1, hemoglobin was 9.9, chemistry profile was abnormal for potassium of 5.8, creatinine was 1.96 and BUN was 48. Glucose was 111. I reviewed the patient's chest x-ray and did not see any abnormality, reading from the radiologist was not resulted at the time of my dictation. Patient will be placed in observation status on PCU for acute kidney injury, hyperkalemia, and symptomatic bradycardia- his metoprolol will be held, I have elected to recheck the patient's potassium tomorrow, he does take potassium supplementation at home and he is on an FRANCES inhibitor. I will hold the patient's FRANCES inhibitor for now, I will administer IV fluids due to his elevated creatinine, I suspect the patient's bradycardia is from his metoprolol. Patient does have a remote sensing research scientist from the [facility] which she sees in [facility] [place], he does not remember his remote sensing research scientist name. [facility] Medical History HTN (hypertension) Home Medications lisinopril 40 mg tablet 40 mg PO DAILY BLOOD PRESSURE 06/22/14 [History Last Taken 11/06/18] multivitamin,vr-lups-tokuzvdi 27 mg-0.4 mg tablet (Therems-M) 1 tab PO DAILY SUPPLEMENT 06/22/14 [History Last Taken 11/06/18] omeprazole 20 mg capsule,delayed release 40 mg PO DAILY ACID REFLUX 06/22/14 [History Last Taken 11/06/18] gotlgn-psxdbkez-rkxprui 12,000-38,000-60,000 unit capsule,delayed rel 1 cap PO TIDCM ENZYMES 11/06/18 [History Last Taken 11/06/18] apixaban 5 mg tablet (Eliquis) 5 mg PO BID BLOOD THINNER 08/25/20 [History Last Taken Unknown] metoprolol tartrate 50 mg tablet 50 mg PO DAILY BLOOD PRESSURE 08/25/20 [History Last Taken Unknown] amlodipine 5 mg tablet 5 mg PO DAILY BLOOD PRESSURE 10/08/22 [History Last Taken Unknown] magnesium oxide 420 mg tablet 840 mg PO TID SUPPLEMENT 10/08/22 [History Last Taken Unknown] potassium 99 mg tablet 99 mg PO DAILY 10/08/22 [History Last Taken Unknown] pregabalin 50 mg capsule (Lyrica) 50 mg PO BID PAIN 10/08/22 [History Last Taken Unknown] rosuvastatin 20 mg tablet (Crestor) 20 mg PO DAILY CHOLESTEROL 10/08/22 [History Last Taken Unknown] tizanidine 4 mg tablet 4 mg PO TID PRN MUSCLE SPASMS 10/08/22 [History Last Taken Unknown] Allergy/AdvReac Type Severity Reaction Status Date / Time venom-honey bee Allergy Pain in Verified 10/08/22 13:35 [bee venom (honey bee)] joints Surgical History H/O hernia repair Total knee replacement status Social History Smoking Status: Former smoker ROS Constitutional Constitutional: Reports fatigue and weakness; Denies anorexia, change in weight, chills, fever(s) or night sweats Eyes Eyes: Denies blurry vision, change in vision, discharge from eye(s) or eye pain Cardiovascular Cardiovascular: Reports dyspnea on exertion and lightheadedness; Denies chest pain, claudication, edema or palpitations Respiratory/Chest Respiratory/Chest: Reports shortness of breath with exertion; Denies cough, excessive phlegm production, hemoptysis or shortness of breath at rest Gastrointestinal Gastrointestinal: Denies abdominal pain, constipation, diarrhea, hematemesis, hematochezia, melena, nausea or vomiting Genitourinary Genitourinary: Denies difficulty urinating, dysuria, hematuria, nocturia, urinary frequency, urinary hesitancy, urinary incontinence or urinary urgency Musculoskeletal Musculoskeletal: Denies back pain, joint pain, joint stiffness, joint swelling, myalgias or neck pain Neurologic Neurologic: Denies abnormal gait, abnormal speech, confusion, disequilibrium, dizziness, focal weakness, headache(s), loss of vision, numbness, other visual disturbances, paresthesias, syncope or tingling Psychiatric Psychiatric: Denies anxiety, cognitive impairment, depression, irritability, mood swings or suicidal ideation Endocrine Endocrinology: Denies change in body appearance, cold intolerance, excessive sweating, heat intolerance, polydipsia or polyuria Hematologic/Lymphatic Hematologic/Lymphatic: Denies none, anemia, easy bleeding, easy bruising or lymphadenopathy Allergic/Immunologic Allergic/Immunologic: Denies rhinitis, urticaria, eczemia or asthma Vital Signs Vital Signs Vital Signs: 10/08/22 13:35 10/08/22 14:01 10/08/22 14:07 Temperature 96.5 F L Temperature Source Temporal Pulse Rate 57 L 42 L 39 L Respiratory Rate 18 21 H 18 Respiratory Pattern Blood Pressure 82/65 L 109/49 L Blood Pressure Mean 70 69 Pulse Ox 98 109 100 Oxygen Delivery Method Room Air Room Air 10/08/22 14:16 10/08/22 14:28 10/08/22 14:50 Temperature Temperature Source Pulse Rate 29 L 37 L 46 L Respiratory Rate 21 H 17 Respiratory Pattern Blood Pressure 99/50 L 99/48 L 115/50 L Blood Pressure Mean 66 65 71 Pulse Ox 100 99 99 Oxygen Delivery Method Room Air Room Air 10/08/22 14:34 10/08/22 14:37 10/08/22 14:40 Temperature Temperature Source Pulse Rate 46 L 39 L 36 L Respiratory Rate 25 H 22 H 20 H Respiratory Pattern Blood Pressure 97/53 L 115/50 L Blood Pressure Mean 67 66 Pulse Ox 100 100 100 Oxygen Delivery Method 10/08/22 14:50 10/08/22 15:00 10/08/22 15:11 Temperature Temperature Source Pulse Rate 35 L 45 L 66 Respiratory Rate 18 20 H 17 Respiratory Pattern Blood Pressure 103/52 L Blood Pressure Mean 67 Pulse Ox 96 Oxygen Delivery Method Room Air 10/08/22 15:28 10/08/22 15:35 Temperature 97.1 F L Temperature Source Temporal Pulse Rate 64 67 Respiratory Rate 18 15 Respiratory Pattern Normal Blood Pressure 130/57 H Blood Pressure Mean 81 Pulse Ox 98 Oxygen Delivery Method Room Air Weight Weight: 73.5 kg Body Mass Index (BMI) 24.6 Physical Exam Const alert, oriented x3, no apparent distress, average body habitus and healthy appearing General Appearance: cooperative, well kempt and well developed Orientation / Consciousness: awake, oriented to person, oriented to place and oriented to time HEENT normocephalic, head/scalp atraumatic, hearing grossly normal bilaterally and moist oral mucous membranes Eyes PERRL, EOMs intact bilaterally and conjunctivae normal Neck supple, no JVD, thyroid normal and no carotid bruits General: trachea midline Resp normal respiratory effort, no retractions, no use of accessory muscles and clear to auscultation bilaterally Auscultation: Negative for rales, rhonchi or wheezes Cardio regular rate, regular rhythm, S1 normal heart sound, S2 normal heart sound, no murmurs, no rub and no gallops Cardio Narrative: Patient is bradycardic GI normal to inspection, nondistended, normoactive bowel sounds, soft to palpation, non-tender and non-distended Extremity no clubbing, cyanosis or edema Skin no rashes or lesions noted General Skin Exam: no breakdown Neuro oriented x3, CN's II-XII intact bilaterally, moves all extremities, no focal motor deficits and no sensory deficits noted Sensorium / Orientation: awake, alert, oriented to person, oriented to place and oriented to time Speech: speech normal Psych affect normal Results Lab / Micro Data 10/08/22 13:55 10/08/22 13:55 Labs: Laboratory Results - last 24 hr 10/08/22 13:55: WBC 11.1 H, RBC 3.17 L, Hgb 9.9 L, Hct 31.9 L, MCV 100.6 H, MCH 31.2, MCHC 31.0 L, RDW Std Deviation 49.6 H, RDW Coeff of Radha 13.4, Plt Count 390, MPV 10.2, Immature Gran % (Auto) 0.500, Neut % (Auto) 69.8, Lymph % (Auto) 18.3 L, [place] % (Auto) 7.1, Eos % (Auto) 3.3, Baso % (Auto) 1.0, Absolute Neuts (auto) 7.7, Absolute Lymphs (auto) 2.02, Nucleated RBC % 0, PT 16.1 H, INR 1.3, APTT 42.2 H, Sodium 135 L, Potassium 5.8 H, Chloride 106, Carbon Dioxide 25.0, Anion Gap 4 L, BUN 48 H, Creatinine 1.96 H, Estim Creat Clear Calc 30.54, Est GFR (MDRD) Af Amer 43 L, Est GFR (MDRD) Non-Af 35 L, BUN/Creatinine Ratio 24.5 H, Glucose 111 H, Calcium 9.7, Magnesium 2.6 Assessment & Plan Assessment/Plan (1) Symptomatic bradycardia: PLAN: Plan 1. Symptomatic bradycardia-secondary to beta-francis usage, patient's metoprolol will be held, he will be placed in observation status on PCU and monitored on telemetry. If the patient remains severely bradycardic, he may have to see cardiology in consultation. #2 hyperkalemia-patient takes potassium supplementation at home, he was given an aerosol treatment of Proventil in the ER, I have elected to repeat the patient's BMP in the morning and monitor him on telemetry. I will hold the patient's FRANCES inhibitor for now. #3 paroxysmal atrial fib-again patient appears to be in sinus bradycardia at this time, he is on Eliquis #4 acute kidney injury-patient will receive IV fluids overnight, BMP will be rechecked tomorrow #5 history of hypomagnesemia-patient takes magnesium supplementation at home, this will be continued during his hospitalization #6 hyperlipidemia-patient is on a statin #7 GERD-patient takes a PPI Total clinical time spent by myself addressing the patient's medical issues, reviewing all of his data, and collaborating with patient's care team: 55 minutes Charges/Coding Visit Charges Inpatient E&M: 65732 Init Hosp L2
[2022-10-08] MEDS: Pregabalin 50 MG Capsule PO (21:20)
[2022-10-08] MEDS: APIXABAN 5 MG TABLET PO (21:20)
[2022-10-08] MEDS: Atorvastatin Calcium 40 MG Tablet PO (21:20)
[2022-10-09 04:10] VITALS: BP 148/65; PULSE 63; RESP 14; TEMP 36.8; O2SAT 100
[2022-10-09] MEDS: 0.9% Normal Saline 1,000 ML 100 ML IV (05:21)
[2022-10-09 06:54] LABS: Anion Gap 2 (5-15); BUN 33 mg/dL (7-18); BUN/Creat Ratio 24.8 RATIO (10-20); Calcium,Total 9.6 mg/dL (8.5-10.1); Chloride 109 mmol/L (98-107); Creatinine, Serum 1.33 mg/dL (0.70-1.30); EST Glomerular Filtration Rate 55 mL/min (>60); Est Glom Filt Rate - Afr Amer 67 mL/min (>60); Glucose 95 mg/dL (74-106); Potassium 5.1 mmol/L (3.5-5.1); Sodium Level 137 mmol/L (136-145)
[2022-10-09 07:24] VITALS: O2SAT 97
--- NOTE | 2022-10-09 07:24 | PN.HOSP_ITS ---
Reason for Visit Reason for Visit: Diagnoses Bradycardia, unspecified (10/08/22) Subjective Subjective Patient is a 77-year-old gentleman who presented with sudden onset of shortness of breath and lightheadedness. Patient was found to be bradycardic on admission with heart rate between 20 to 30 bpm. Admitted to a monitored bed for subsequent eval Objective Data Objective Data Vital Signs: Vital Signs Temp Pulse Resp BP Pulse Ox O2 Del Method O2 Flow Rate 98.2 F 63 14 148/65 H 100 Room Air 4 10/09/22 04:10 10/09/22 04:10 10/09/22 04:10 10/09/22 04:10 10/09/22 04:10 10/09/22 04:10 10/08/22 22:20 Oxygen Flow Rate (L/min) 4 Oxygen Delivery Method Room Air Weight: 73.5 kg Body Mass Index (BMI) 24.6 Intake & Output: Intake and Output for Last 24 Hours 10/07/22 10/08/22 10/09/22 23:59 23:59 23:59 Intake Total 1043.33 / 1043.33 930 / 930 Output Total 2 / 2 Balance 1043.33 / 1043.33 928 / 928 Lab / Micro Data 10/08/22 13:55 10/09/22 06:04 Labs: Laboratory Results - last 24 hr 10/08/22 13:55: WBC 11.1 H, RBC 3.17 L, Hgb 9.9 L, Hct 31.9 L, MCV 100.6 H, MCH 31.2, MCHC 31.0 L, RDW Std Deviation 49.6 H, RDW Coeff of Radha 13.4, Plt Count 390, MPV 10.2, Immature Gran % (Auto) 0.500, Neut % (Auto) 69.8, Lymph % (Auto) 18.3 L, [place] % (Auto) 7.1, Eos % (Auto) 3.3, Baso % (Auto) 1.0, Absolute Neuts (auto) 7.7, Absolute Lymphs (auto) 2.02, Nucleated RBC % 0, PT 16.1 H, INR 1.3, APTT 42.2 H, Sodium 135 L, Potassium 5.8 H, Chloride 106, Carbon Dioxide 25.0, Anion Gap 4 L, BUN 48 H, Creatinine 1.96 H, Estim Creat Clear Calc 30.54, Est GFR (MDRD) Af Amer 43 L, Est GFR (MDRD) Non-Af 35 L, BUN/Creatinine Ratio 24.5 H , Glucose 111 H, Calcium 9.7, Magnesium 2.6, Blood Type AB POSITIVE, Antibody Screen NEGATIVE 10/09/22 06:04: Sodium 137, Potassium 5.1, Chloride 109 H, Carbon Dioxide 26.0, Anion Gap 2 L, BUN 33 H, Creatinine 1.33 H, Estim Creat Clear Calc 45.00, Est GFR (MDRD) Af Amer 67, Est GFR (MDRD) Non-Af 55 L, BUN/Creatinine Ratio 24.8 H, Glucose 95, Calcium 9.6 Radiography Diagnostic Testing: Radiology Impression Chest X-Ray 10/08/22 15:10 IMPRESSION: Bibasilar linear scarring/atelectasis. Electronically Signed: Grey Bush MD at 16:37 EDT , Physical Exam Narrative GENERAL: cooperative HEENT: Atraumatic; normocephalic EYES; Anicteric, Normal Conjunctiva NECK; supple, normal thyroid, RESPIRATORY: Diminished to auscultation CARDIOVASCULAR: Regular S1 S2, GI: soft, normoactive bowel sounds, : No Renal angle tenderness; EXTREMITIES: No edema, no clubbing, MUSCULOSKELETAL: no muscle wasting NEURO: Awake; no lateralizing signs. SKIN: No Rash PSYCH; Flat affect Assessment & Plan Assessment/Plan (1) Symptomatic bradycardia: PLAN: Plan Patient is a 77-year-old gentleman who presented with sudden onset of shortness of breath and lightheadedness. Patient was found to be bradycardic on admission with heart rate between 20 to 30 bpm. Admitted to a monitored bed for subsequent eval 1. Symptomatic bradycardia ? Attributed to patient being on beta blockers as well as his hyperkalemia held admitted to monitored bed for continuous telemetry 2. Hyperkalemia ? Attributed to patient potassium supplementation this was held in addition to his FRANCES inhibitor's 3. Paroxysmal A-fib ? Patient presented with significant bradycardia beta-blockers held patient is on systemic anticoagulation with apixaban did continue 4. Anemia - Secondary to chronic disorder monitoring H&H and transfuse if patient becomes symptomatic or hemoglobin falls below 7 5. Essential hypertension ? Patient is on metoprolol amlodipine and lisinopril. Metoprolol and lisinopril held given above reasons 6. GERD ? Patient is on PPI 7. Hypomagnesemia ? Patient is on potassium supplementation 8. Kidney disease stage III ? Kidney function at baseline 9. DVT prophylaxis ? Patient is on apixaban Time spent in the patient's overall evaluation,decision-making process, review of diagnostic data, adjustment of management, discussion with other providers, nursing nursing and ancillary staff involved in patient's care documentation, 35 Minutes Charges/Coding Visit Charges Inpatient E&M: 84442 Subs Hosp L2
[2022-10-09] MEDS: amLODIPine 5 MG Tablet PO (08:18)
[2022-10-09] MEDS: Pantoprazole Sodium 20 MG Tablet 40 MG PO (08:18)
[2022-10-09] MEDS: APIXABAN 5 MG TABLET PO (08:19)
[2022-10-09] MEDS: Pregabalin 50 MG Capsule PO (08:19)
[2022-10-09] MEDS: Magnesium Chloride 64 MG Delay Rel.Tablet 128 MG PO (08:19)
--- NOTE | 2022-10-09 10:02 | DS.PCM_ITS ---
Providers Date of Admission: 10/08/22 Date of Discharge: 10/09/22 Primary Care Physician: Dr. Nakul Burns MD Reason For Visit: SYMPTOMATIC BRADYCARDIA, DAVID, HYPERKALEMIA Diagnosis Discharge Diagnosis (1) Symptomatic bradycardia: Status: Acute Code(s): R00.1 - Bradycardia, unspecified Plan Patient is a 77-year-old gentleman who presented with sudden onset of shortness of breath and lightheadedness. Patient was found to be bradycardic on admission with heart rate between 20 to 30 bpm. Admitted to a monitored bed for subsequent eval 1. Symptomatic bradycardia ? Attributed to patient being on beta blockers as well as his hyperkalemia held admitted to monitored bed for continuous telemetry 2. Hyperkalemia ? Attributed to patient potassium supplementation this was held in addition to his FRANCES inhibitor's 3. Paroxysmal A-fib ? Patient presented with significant bradycardia beta-blockers held patient is on systemic anticoagulation with apixaban did continue 4. Anemia - Secondary to chronic disorder monitoring H&H and transfuse if patient becomes symptomatic or hemoglobin falls below 7 5. Essential hypertension ? Patient is on metoprolol amlodipine and lisinopril. Metoprolol and lisinopril held given above reasons 6. GERD ? Patient is on PPI 7. Hypomagnesemia ? Patient is on potassium supplementation 8. Kidney disease stage III ? Kidney function at baseline 9. DVT prophylaxis ? Patient is on apixaban Time spent in the patient's overall evaluation,decision-making process, review of diagnostic data, adjustment of management, discussion with other providers, nursing nursing and ancillary staff involved in patient's care documentation, 35 Minutes Medications at Discharge Home Medications multivitamin,vn-cnss-cmpeitlw 27 mg-0.4 mg tablet (Therems-M) 1 tab PO DAILY SUPPLEMENT 06/22/14 omeprazole 20 mg capsule,delayed release 40 mg PO DAILY ACID REFLUX 06/22/14 nodflw-vvrxvcbi-fupqkzs 12,000-38,000-60,000 unit capsule,delayed rel 1 cap PO TIDCM ENZYMES 11/06/18 apixaban 5 mg tablet (Eliquis) 5 mg PO BID BLOOD THINNER 08/25/20 magnesium oxide 420 mg tablet 840 mg PO TID SUPPLEMENT 10/08/22 pregabalin 50 mg capsule (Lyrica) 50 mg PO BID PAIN 10/08/22 rosuvastatin 20 mg tablet (Crestor) 20 mg PO DAILY CHOLESTEROL 10/08/22 tizanidine 4 mg tablet 4 mg PO TID PRN MUSCLE SPASMS 10/08/22 amlodipine 5 mg tablet 10 mg (2 x 5 mg) PO DAILY #60 tabs 10/09/22 Hospital Course Summary of Care Provided Minutes Spent on Discharge: 35 Physical Exam Narrative GENERAL: cooperative HEENT: Atraumatic; normocephalic EYES; Anicteric, Normal Conjunctiva NECK; supple, normal thyroid, RESPIRATORY: Diminished to auscultation CARDIOVASCULAR: Regular S1 S2, GI: soft, normoactive bowel sounds, : No Renal angle tenderness; EXTREMITIES: No edema, no clubbing, MUSCULOSKELETAL: no muscle wasting NEURO: Awake; no lateralizing signs. SKIN: No Rash PSYCH; Flat affect Weight / BMI Weight Weight: 73.5 kg Body Mass Index (BMI) 24.6 ABG / Lab / Microbiology Data 10/08/22 13:55 10/09/22 06:04 Laboratory: Laboratory Results - last 24 hr 10/08/22 13:55: WBC 11.1 H, RBC 3.17 L, Hgb 9.9 L, Hct 31.9 L, MCV 100.6 H, MCH 31.2, MCHC 31.0 L, RDW Std Deviation 49.6 H, RDW Coeff of Radha 13.4, Plt Count 390, MPV 10.2, Immature Gran % (Auto) 0.500, Neut % (Auto) 69.8, Lymph % (Auto) 18.3 L, [place] % (Auto) 7.1, Eos % (Auto) 3.3, Baso % (Auto) 1.0, Absolute Neuts (auto) 7.7, Absolute Lymphs (auto) 2.02, Nucleated RBC % 0, PT 16.1 H, INR 1.3, APTT 42.2 H, Sodium 135 L, Potassium 5.8 H, Chloride 106, Carbon Dioxide 25.0, Anion Gap 4 L, BUN 48 H, Creatinine 1.96 H, Estim Creat Clear Calc 30.54, Est GFR (MDRD) Af Amer 43 L, Est GFR (MDRD) Non-Af 35 L, BUN/Creatinine Ratio 24.5 H , Glucose 111 H, Calcium 9.7, Magnesium 2.6, Blood Type AB POSITIVE, Antibody Screen NEGATIVE 10/09/22 06:04: Sodium 137, Potassium 5.1, Chloride 109 H, Carbon Dioxide 26.0, Anion Gap 2 L, BUN 33 H, Creatinine 1.33 H, Estim Creat Clear Calc 45.00, Est G FR (MDRD) Af Amer 67, Est GFR (MDRD) Non-Af 55 L, BUN/Creatinine Ratio 24.8 H, Glucose 95, Calcium 9.6 Radiography Diagnostic Testing: Radiology Impression Chest X-Ray 10/08/22 15:10 IMPRESSION: Bibasilar linear scarring/atelectasis. Electronically Signed: Grey Bush MD at 16:37 EDT , D/C Instructions Discharge Diet: No restrictions Discharge Activity: Return to Normal Activity Call your doctor if you observe: Fever of 101 or Higher, Shortness of breath, Fainting spells and Chest pain Meaningful Use Info Meaningful Use Diagnoses (Choose all that apply): None applicable Discharge Plan Admission Admit Date/Time: 10/08/22 16:53 Attending Provider: Rick Hayes Primary Care Provider: Nakul Burns Consulting Providers: Nakul Medina Discharge Orders/Prescriptions Prescriptions: New amlodipine 5 mg Tablet 10 mg PO DAILY Qty: 60 0RF Continued omeprazole 20 MG capsule 40 mg PO DAILY Therems-M 1 TABLET tablet 1 tab PO DAILY izctyh-wwebzlqi-nusewbp 1 CAPSULE capsule 1 cap PO TIDCM Eliquis 5 mg Tablet 5 mg PO BID rosuvastatin [Crestor] 20 mg tablet 20 mg PO DAILY pregabalin [Lyrica] 50 mg capsule 50 mg PO BID tizanidine 4 mg tablet 4 mg PO TID PRN (Reason: MUSCLE SPASMS) magnesium oxide 420 mg tablet 840 mg PO TID Discontinued lisinopril 40 MG tablet 40 mg PO DAILY metoprolol tartrate 50 mg Tablet 50 mg PO DAILY amlodipine 5 mg tablet 5 mg PO DAILY potassium 99 mg tablet 99 mg PO DAILY Referrals / Follow Up: Nakul Burns MD [Primary Care Provider] - In 1 Week Disposition Disposition (needs filled in before D/C Order can be placed): Home, Self Care Charges/Coding Visit Charges Inpatient E&M: 99019 Disch Hosp >30min
[2022-10-09 10:10] VITALS: BP 135/57; PULSE 59; RESP 18; TEMP 36.4; TEMP 36.8; O2SAT 96
--- NOTE | 2022-10-09 10:37 | PHA.DC.MR.R ---
Pharmacy [place] Med Reconciliation Pharmacy Service has performed discharge medication reconciliation for this patient. The patient's discharge medication list was reviewed for discrepancies and discrepancies were resolved. Medications at Discharge Home Medications multivitamin,zj-ajuy-xgvyoeci 27 mg-0.4 mg tablet (Therems-M) 1 tab PO DAILY SUPPLEMENT 06/22/14 omeprazole 20 mg capsule,delayed release 40 mg PO DAILY ACID REFLUX 06/22/14 thhpjd-acmpgtwc-buwuztz 12,000-38,000-60,000 unit capsule,delayed rel 1 cap PO TIDCM ENZYMES 11/06/18 apixaban 5 mg tablet (Eliquis) 5 mg PO BID BLOOD THINNER 08/25/20 magnesium oxide 420 mg tablet 840 mg PO TID SUPPLEMENT 10/08/22 pregabalin 50 mg capsule (Lyrica) 50 mg PO BID PAIN 10/08/22 rosuvastatin 20 mg tablet (Crestor) 20 mg PO DAILY CHOLESTEROL 10/08/22 tizanidine 4 mg tablet 4 mg PO TID PRN MUSCLE SPASMS 10/08/22 amlodipine 5 mg tablet 10 mg (2 x 5 mg) PO DAILY #60 tabs 10/09/22
--- NOTE | 2022-10-09 13:15 | CASEMGMT ---
Patient has order for discharge. RN CM in to discuss needs at discharge. Patient denies needs at discharge. Patient had no further questions or concerns at this time.
--- NOTE | 2022-10-09 13:29 | NURSING ---
patient being discharged home. Friend coming to mixing picker tender and transport via private vehicle.
== END 2022-10-09 10:10 | disposition home or self-care (01) ==
LOC: ED 15:37 → PCU 16:39
PROVIDERS: Admitting Provider Internal Medicine; Emergency Provider Emergency Medicine; PCP Family Medicine; Visit Provider Internal Medicine
DX: R00.1 Bradycardia, unspecified (principal); N17.9 Acute kidney failure, unspecified; I48.0 Paroxysmal atrial fibrillation; E87.5 Hyperkalemia; R06.02 Shortness of breath; R53.83 Other fatigue; Z87.891 Personal history of nicotine dependence; Z79.01 Long term (current) use of anticoagulants; I12.9 Hypertensive chronic kidney disease with stage 1 through stage 4 chronic kidney disease, or unspecified chronic kidney disease; D63.8 Anemia in other chronic diseases classified elsewhere; K21.9 Gastro-esophageal reflux disease without esophagitis; E83.42 Hypomagnesemia; N18.2 Chronic kidney disease, stage 2 (mild); Z79.899 Other long term (current) drug therapy
CPT/HCPCS: 36415; 71045; 80048; 83735; 85025; 85610; 85730; 86850; 86900; 86901; 93005; 94640; 96360; 96361; 99221; 99285; J7030; A4216; G0378; J0612

== ENCOUNTER 2024-03-05 09:32 | Emergency (ER) | payer OTHER, SELFPAY ==
[2024-03-05 09:34] VITALS: BP 142/79; PULSE 88; RESP 16; TEMP 36.6; O2SAT 93
--- NOTE | 2024-03-05 10:18 | RAD_ITS ---
STUDY: X-RAY - LEFT ANKLE REASON FOR EXAM: Male, 79 years old. Injury/Pain TECHNIQUE: 3 views of the left ankle. COMPARISON: None. FINDINGS: Normal visualized distal tibia and fibula. Normal medial and lateral malleoli. Normal tibiotalar articulation and ankle mortise. Normal visualized talus and calcaneus. The visualized subtalar, talonavicular, calcaneocuboid and tarsal articulations are normal. There is no demonstrated fracture. There is moderate soft tissue swelling surrounding the left ankle. RAD/Ankle min 3 Views IMPRESSION: Moderate soft tissue swelling surrounding the left ankle. No demonstrated fracture. Electronically Signed: Mandeep Saba MD at 10:56 EST ,
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
[2024-03-05 11:34] VITALS: BP 132/69; PULSE 84; RESP 15; TEMP 36.6; O2SAT 95
== END 2024-03-05 11:40 | disposition home or self-care (01) ==
PROVIDERS: Emergency Provider Emergency Medicine; PCP Family Medicine; Visit Provider Emergency Medicine
DX: S90.02XA Contusion of left ankle, initial encounter (principal); I48.91 Unspecified atrial fibrillation; I10 Essential (primary) hypertension; Z87.891 Personal history of nicotine dependence; W50.1XXA Accidental kick by another person, initial encounter; K21.9 Gastro-esophageal reflux disease without esophagitis; Z79.899 Other long term (current) drug therapy; Z79.01 Long term (current) use of anticoagulants; Z96.659 Presence of unspecified artificial knee joint
CPT/HCPCS: 73610; 99283